=== PATIENT | female | born 1955 | race Caucasian/White ===

== ENCOUNTER 2016-06-28 10:00 | Emergency (ER) | payer MEDICARE, OTHER ==
[2016-06-28 10:23] VITALS: BP 143/79
[2016-06-28] MEDS ORDERED: CYCLOBENZAPRINE HCL 10 MG TABLET PO ONE (10:39)
[2016-06-28] MEDS ORDERED: KETOROLAC TROMETHAMINE 60 MG/2 ML VIAL IM ONE ×2 (10:39→11:07)
--- OUTSIDE RECORDS SUMMARY | 2016-06-28 10:44 | XMS REPORT | Continuity of Care Document ---
:1955 Author Organization [facility] ([facility]) Address [address] [place] [address] Phone [phone] Care Team Providers Name Role Phone MariamdaltonalishaMindy Primary Care Provider [phone] Source Comments This disclosure is being made pursuant to the Care Everywhere program, applicable federal and state laws, and may not contain all informaitonavailable regarding this patient.[facility] ([facility]) Active Allergies and Adverse Reactions No Known Allergies Current Medications Prescription Sig. Disp. Refills Start Date End Date Status ALPRAZolam 0.5 mg 2 03/04/2015 Active tablet BROVANA 15 mcg/2 mL 3 02/28/2015 Active nebu inhalation solution budesonide 0.5 mg/2 mL 3 02/28/2015 Active nebulizer suspension clopidogrel 75 mg 5 03/11/2015 Active tablet famotidine 20 mg tablet 4 03/11/2015 Active fluticasone 50 3 01/03/2015 Active mcg/Actuation nasal spray furosemide 80 mg tablet Take 80 mg by mouth 2 0 03/11/2015 Active times daily glipiZIDE 10 mg tablet Take 10 mg by mouth 2 5 03/11/2015 Active times daily with meals lisinopril 10 mg tablet 5 03/11/2015 Active metFORMIN 1,000 mg Take 1,000 mg by 5 03/11/2015 Active tablet mouth 2 times daily with meals nystatin 100,000 unit/g 1 02/15/2015 Active powder simvastatin 20 mg 5 03/11/2015 Active tablet SPIRIVA WITH HANDIHALER 11 02/21/2015 Active 18 mcg inhalation capsule predniSONE 1 mg tablet 01/19/2015 Active albuterol 90 Use 2 Puffs by Active mcg/Actuation inhaler inhalation every 6 hours as needed Active Problems Problem Noted Date Coronary artery disease Overview: Cath 04/2006: Normal LV function. Right dominant circulation. LMCA normal. LAD normal. LCX normal. RCA 90% proximal stenosis.Stent deployment 3.5x16mm LIBERTE. 0% residual stenosis. ECHO:12/19/2012. Normal LV function. No pulmonary HTN. No significant valvular heart disease Stress Test MPI 05/2006: No inducible ischemia MPI 02/03/2013: No inducible ischemia Diabetes mellitus Tobacco abuse Hyperlipidemia Most Recent Encounters Date Type Specialty Providers Description 05/03/2016 Hospital Encounter Radiation Oncology Carlos Andres, Chief Comp: Patient MD Reported Reason For Visit Social History Tobacco Use Types Packs/Day Years Used Date Former Smoker Alcohol Use Drinks/Week oz/Week Comments No Last Filed Vital Signs Vital Sign Reading Time Taken Blood Pressure 128/70 03/22/2015 9:14 AM ZINC FURNACE CHARGER Pulse 82 03/22/2015 9:14 AM ZINC FURNACE CHARGER Temperature - - Respiratory Rate - - Height 1.473 m (4' 9.99") 03/22/2015 9:14 AM ZINC FURNACE CHARGER Weight 115.214 kg (254 lb) 03/22/2015 9:14 AM ZINC FURNACE CHARGER Body Mass Index 53.1 03/22/2015 9:14 AM ZINC FURNACE CHARGER Oxygen Saturation - - Plan of Care Health Maintenance Due Date Last Done Comments HCV Screening 1955 Hepatitis B Vaccine (1 of 3 - Primary Series) 1955 Tdap Vaccine 07/24/1966 DIABETIC: Cholesterol 07/24/1973 Diabetic: Hdl 07/24/1973 DIABETIC: Hemoglobin A1C 07/24/1973 Diabetic: Ldl 07/24/1973 DIABETIC: Microalbumin 07/24/1973 DIABETIC: Triglycerides 07/24/1973 MMR Vaccine 07/24/1973 Td Vaccine 07/24/1973 Pneumococcal Vaccine (1 of 3 - PCV13) 07/24/1974 Cervical Cancer Screening 07/24/1985 Mammogram 1995 Colonoscopy 07/24/2005 DIABETIC: Foot Exam 03/20/2015 DIABETIC: Retinal Eye Exam 03/20/2015 Zoster Vaccine 2015 Influenza Vaccine: Seasonal (#1) 11/07/2015 Results from Last 3 Months Not on file
--- NOTE | 2016-06-28 10:53 | ERNOTE ---
Back Pain ER HPI Date of Service: 06/28/16 Time Seen by Provider: 06/28/16 10:34 Source: patient Exam Limitations: no limitations Immunizations: IMMUNIZATION HX Immunizations Up to Date Yes History of Influenza Vaccine Yes Hx Pneumococcal Vaccination Yes Allergies/Adverse Reactions: Allergies sodium salicylate Allergy (Unknown, Verified 06/28/16 10:23) Home Medications: HOME MEDICATIONS Aspirin [Hoa Chewable Aspirin] 81 mg PO DAILY 03/06/14 [Last Taken 05/30/15 09 :30] Clopidogrel Bisulfate [Plavix] 75 mg PO DAILY 03/06/14 [Last Taken 05/30/15 09: 30] Famotidine [Pepcid AC] 1 tab PO BID 03/06/14 [Last Taken 05/30/15 09:30] Furosemide [Lasix] 80 mg PO BID 03/06/14 [Last Taken 05/30/15 09:30] Lisinopril [Zestril] 10 mg PO DAILY 03/06/14 [Last Taken 05/30/15 09:30] Multivitamin [Multi-Vitamin Daily] 1 each PO DAILY 03/06/14 [Last Taken 21:00] Simvastatin [Zocor] 10 mg PO HS 03/06/14 [Last Taken 05/29/15] metFORMIN HCL [Glucophage] 1,250 mg PO BID 03/06/14 [Last Taken 05/30/15 09:30] ALPRAZolam [Xanax] 1 tab PO TID PRN 06/30/14 [Last Taken Unknown] Acetaminophen [Tylenol] 2 tab PO QID PRN 06/30/14 [Last Taken Unknown] Glipizide 10 mg PO BID 06/30/14 [Last Taken 05/30/15 09:30] Hydrophilic Ointment 1 appl TP DAILY 06/30/14 [Last Taken Unknown] Ipratropium/Albuterol Sulfate [Combivent Respimat Inhal [place]] 1 puff IH QID [Last Taken Unknown] Sertraline HCl [Zoloft] 50 mg PO HS 05/30/15 [Last Taken 05/29/15 21:00] ALPRAZolam [Xanax] 0.25 mg PO HS 10/14/15 [Last Taken Unknown] Albuterol Sulfate [Proair Hfa] 2 puff IH QID PRN 10/14/15 [Last Taken Unknown] Arformoterol Tartrate [Brovana] 15 mcg IH BID 10/14/15 [Last Taken Unknown] Budesonide [Pulmicort Respules] 2 ml IH BID 10/14/15 [Last Taken Unknown] Diltiazem HCl [Cardizem] 60 mg PO BID 10/14/15 [Last Taken Unknown] Fluticasone Propionate [Flovent Diskus] 50 mcg IH BID 10/14/15 [Last Taken Unknown] Guaifenesin [Mucinex] 1,200 mg PO BID 10/14/15 [Last Taken Unknown] Mupirocin [Centany At] 1 each TP TID PRN 10/14/15 [Last Taken Unknown] Nystatin 1 each MC BID PRN 10/14/15 [Last Taken Unknown] Tiotropium [place] [Spiriva] 18 mcg IH DAILY 10/14/15 [Last Taken Unknown] Azithromycin [Zithromax] 500 mg PO DAILY #2 tab 10/16/15 [Last Taken Unknown] predniSONE [Prednisone] 40 mg PO DAILY #4 tablet 10/16/15 [Last Taken Unknown] Cyclobenzaprine HCl [Flexeril] 10 mg PO TID PRN #30 tab 06/28/16 [Last Taken Unknown] Naproxen [Naprosyn] 500 mg PO BID PRN #60 tab 06/28/16 [Last Taken Unknown] Narrative: Pt. comes in with c/o low back pain for two weeks that she believes started with her straining her back picking up a broken pickle jar two weeks ago. Pt. denies any numbness or tingling, SOB, CP, NVD, radiation of pain, or incontinence of bowel or bladder. Review of Systems - Review of Systems Constitutional: Present: no symptoms reported. Absent: recent illness, fever, chills, weakness, fatigue, malaise EYE: Present: no symptoms reported ENT: Present: no symptoms reported Respiratory: Present: no symptoms reported. Absent: shortness of breath, cough , wheezing Cardiology: Present: no symptoms reported. Absent: chest pain, palpitations, edema Gastrointestinal/Abdominal: Present: no symptoms reported. Absent: nausea, vomiting, diarrhea Genitourinary: Present: no symptoms reported. Absent: frequency, pain, dysuria , hematuria, decreased urinary output Musculoskeletal: Present: back pain - L flank and L3-5 Skin: Present: no symptoms reported Neurological: Present: no symptoms reported. Absent: headache, dizziness/light- headedness, weakness, numbness, tingling All Other Systems: All systems neg except as marked - Patient's Past Medical History Patient History - Medical: Anxiety, Diabetes Type 2, Depression, GERD, Headache , Osteoarthritis Patient History - Cardiac/Respiratory: COPD, Hypertension, Hyperlipidemia, CPAP/ BiPAP Home Use, Sleep Apnea Patient History - Cancer: No Hx of Cancer Patient History - Surgical Procedures: Cardiac stent, Hysterectomy, T & A Patient History - Other: None LMP (females 10-50): Menopausal - Family History Mother Family History - Medical: Diabetes Type 2 Family History - Cardiac/Respiratory: History Unknown Father Family History - Cardiac/Respiratory: Hypertension Sister Family History - Medical: Diabetes Type 2 - Social History Living Situations: home Abuse History: No History of abuse Psych History: No pertinent hx Alcohol Use: none Drug Use: none - Immunizations Immunizations Up to Date: Yes Hx Pneumococcal Vaccination: Yes History of Influenza Vaccine: Yes Physical Exam - Physical Exam General Appearance: Present: wd/wn, alert, no apparent distress Eye Exam: Normal inspection: bilateral, PERRL: bilateral, EOMI: bilateral Ears, Nose, Throat: Present: normal ENT inspection, normal pharynx Neck: Present: normal inspection, nontender. Absent: lymphadenopathy (R), lymphadenopathy (L) Respiratory: Present: no respiratory distress, normal breath sounds, no accessory muscle use, chest nontender, lungs clear Cardiovascular/Chest: Present: regular rate, rhythm, no murmur, normal peripheral pulses Gastrointestinal/Abdominal: Present: normal bowel sounds, nontender, nondistended, soft, no organomegaly Back Exam: Present: normal range of motion, CVA tenderness (L), vertebral tenderness, decreased range of motion, muscle spasm - L paraspinous L4-L5 only Extremity Exam: Present: normal inspection, non-tender, normal range of motion, no edema Neurological Exam: Present: alert, oriented, normal mood/affect, no motor/ sensory deficits Skin Exam: Present: normal color, warm/dry. Absent: pallor, skin rash ED Progress - Results and Orders Patient's Lab Results:: I have reviewed the patient's lab results. - Vital Signs Patient's Vital Signs:: I have reviewed the patient's vital signs. Vital Signs: Vital Signs 06/28/16 10:19 Temperature 37.0 C Pulse Rate 98 Respiratory 16 Rate Blood Pressure 143/79 O2 Sat by Pulse 99 Oximetry - X-Ray X-Ray #1 X-Ray: lumbosacral Interpretation: Reviewed by me X-ray Comments: moderate degenerative spurring - Progress/Reassessment Chief Complaint: Back Pain Departure Clinical Impression: Muscle strain Degenerative disc disease Qualifiers: Spinal region: lumbar Qualified Code(s): M51.36 - Other intervertebral disc degeneration, lumbar region - Departure Disposition: Home self-care Condition: Good Instructions: Low Back Strain With Rehab-SportsMed, Degenerative Disk Disease Additional Instructions: please follow up with primary provider in 2-3 days. Referrals: Mindy Quezada MD [Primary Care Provider] - Prescriptions: Cyclobenzaprine HCl [Flexeril] 10 mg PO TID PRN #30 tab PRN Reason: MUSCLE SPASMS Naproxen [Naprosyn] 500 mg PO BID PRN #60 tab PRN Reason: Pain
[2016-06-28] MEDS ORDERED: CYCLOBENZAPRINE HCL 10 MG TABLET ONE (11:07)
[2016-06-28 11:54] LABS: Urine Bilirubin Negative (NEGATIVE); Urine Blood Negative /ul (NEGATIVE); Urine Ketone Negative (NEGATIVE); Urine Nitrite Negative (NEGATIVE); Urine Protein Negative (NEGATIVE); Urine Urobilinogen Normal (NORMAL)
[2016-06-28 12:08] LABS: Urine Appearance Slightly Cloudy; Urine Bacteria None Seen; Urine Color Yellow; Urine RBC None Seen /hpf (0-5); Urine WBC 0-5 /hpf (0-5)
== END 2016-06-28 12:27 | disposition home or self-care (01) ==
LOC: ER 10:00
DX: M51.36 Other intervertebral disc degeneration, lumbar region (principal); S39.012A Strain of muscle, fascia and tendon of lower back, initial encounter; X50.1XXA Overexertion from prolonged static or awkward postures, initial encounter; Z95.5 Presence of coronary angioplasty implant and graft

== ENCOUNTER 2016-07-17 10:50 | Observation (INO) | payer MEDICARE, OTHER ==
--- OUTSIDE RECORDS SUMMARY | 2016-07-17 10:55 | XMS REPORT | Continuity of Care Document ---
:1955 Author Organization [facility] ([facility]) Address [address] [place] [address] Phone [phone] Care Team Providers Name Role Phone MariamdaltonalishaMindy Primary Care Provider [phone] Source Comments This disclosure is being made pursuant to the Care Everywhere program, applicable federal and state laws, and may not contain all informaitonavailable regarding this patient.[facility] ([facility]) Active Allergies and Adverse Reactions No Known [...] Taken Blood Pressure 128/70 03/22/2015 9:14 AM EARLY CHILDHOOD DIRECTOR Pulse 82 03/22/2015 9:14 AM EARLY CHILDHOOD DIRECTOR Temperature - - Respiratory Rate - - Height 1.473 m (4' 9.99") 03/22/2015 9:14 AM EARLY CHILDHOOD DIRECTOR Weight 115.214 kg (254 lb) 03/22/2015 9:14 AM EARLY CHILDHOOD DIRECTOR Body Mass Index 53.1 03/22/2015 9:14 AM EARLY CHILDHOOD DIRECTOR Oxygen Saturation - - Plan of Care [...]
[2016-07-17] MEDS ORDERED: ONDANSETRON HCL/PF 2 MG/ML VIAL IV PRN (11:21)
[2016-07-17 11:42] LABS: Hematocrit 32.2 % (37.0-47.0); Hemoglobin 9.7 gm/dL (12.5-16.0); Mean Cell Volume 81.1 fl (78-100); Mean Corpuscular Hemoglobin 24.4 pg (27-31); Mean Corpuscular Hgb Conc 30.1 g/dl (32-36); Mean Platelet Volume 10.6 fl (6.0-9.5); Platelet Count 512 K/mm3 (150-450); Red Blood Count 3.97 M/mm3 (4.2-5.4); Red Cell Distribution Width 16.7 % (11.5-14.0); White Blood Count 18.8 K/mm3 (4.0-10.5)
[2016-07-17 11:46] LABS: Total Cells Counted 100
[2016-07-17] MEDS ORDERED: NORMAL SALINE 1,000 ML IV PRN (11:47)
[2016-07-17 11:54] LABS: Troponin I Less than 0.017 ng/ml (0.00-0.10)
[2016-07-17 11:56] LABS: ALT 156 U/L (19-67); AST 142 U/L (0-48); Albumin * 2.3 gm/dl (3.4-5.0); Alkaline Phosphatase * 380 U/L (50-170); Amylase * 22 U/L (25-115); Anion Gap 12.5 mmol/L (6.8-13.8); BNP * 252 pg/mL (5-205); BUN/Creatinine Ratio 17.7 (9.0-21.6); Bilirubin, Total 0.9 mg/dL (0.0-1.1); Blood Urea Nitrogen 14 mg/dL (3-23); Ca. Corrected For Albumin 10.5 mg/dL (8.4-10.2); Calcium * 9.5 mg/dL (7.9-10.9); Carbon Dioxide 37.5 mmol/L (24-32.6); Chloride 94 mmol/L (97-106); Glucose * 53 mg/dL (70-110); Lipase 90 U/L (73-393); Sodium 141 mmol/L (132-142); Total Protein 7.4 gm/dL (6.2-8.2)
--- NOTE | 2016-07-17 11:57 | HP ---
Chief Complaint - Chief Complaint Date of Service: 07/17/16 Time of Service: 11:55 Chief Complaint: nausea and diarrhea for the last 4 days. History of Present Illness: Patient is a 60-year-old WF with a H/O HTN, HLD, T2DM, lymphedema/venous stasis of lower extremities, COPD on O2, CAD who came into the office because of persistent nausea, occasional diarrhea and difficulty in eating. She denies any abdominal pain, vomiting, fevers/chills. The patient has been taking her diabetic medication including metformin however has not been checking her blood sugars. She was admitted for further care/treatment. Abnormal lab values were: WBC 18.8, H/H9.7/32.7, K+ 3.2, AST 142, ALT 156, ALK PO4 380 and CRP 37.2. EKG showed sinus tachycardia of 120/m. Patient looked chronically ill but not septic. 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 Patient History - Cancer: No Hx of Cancer Additional Info: PAST SURGICAL HISTORY: Tonsillectomy; abdominal hysterectomy; hernia repair; . Patient History - Other: None - Family History Mother Family History - Medical: Diabetes Type 2 Family History - Cardiac/Respiratory: History Unknown Father Family History - Cardiac/Respiratory: Hypertension Sister Family History - Medical: Diabetes Type 2 - Social History Living Situations: home Abuse History: No History of abuse Psych History: No pertinent hx Smoking Status: Former smoker - 3/4 PPD for many years. Alcohol Use: none Drug Use: none - Immunizations Immunizations Up to Date: Yes Hx Pneumococcal Vaccination: Yes History of Influenza Vaccine: Yes Review Of Systems (GEN) - Review of Systems Generalized/Overall Review: Present: Weakness, Fatigue. Absent: Chills, Fever, Weight loss Respiratory: Present: Shortness of Breath Cardiac: Present: Edema. Absent: Chest Pain Abdominal: Present: Nausea, Diarrhea. Absent: Abdominal Pain Musculoskeletal: Present: Back Pain Neurological: Present: Anxiety, Depressed Immunizations: IMMUNIZATION HX Immunizations Up to Date Yes History of Influenza Vaccine Yes Hx Pneumococcal Vaccination Yes Allergies/Adverse Reactions: Allergies Allergy/AdvReac Type Severity Reaction Status Date / Time sodium salicylate Allergy Unknown Verified 07/17/16 11:41 Home Medications: HOME MEDICATIONS Aspirin [Hoa Chewable Aspirin] 81 mg PO DAILY 03/06/14 [Last Taken 05/30/15 09 :30] Clopidogrel Bisulfate [Plavix] 75 mg PO DAILY 03/06/14 [Last Taken 05/30/15 09: 30] Famotidine [Pepcid AC] 1 tab PO BID 03/06/14 [Last Taken 05/30/15 09:30] Furosemide [Lasix] 80 mg PO BID 03/06/14 [Last Taken 05/30/15 09:30] Lisinopril [Zestril] 10 mg PO DAILY 03/06/14 [Last Taken 05/30/15 09:30] Simvastatin [Zocor] 10 mg PO HS 03/06/14 [Last Taken 05/29/15] metFORMIN HCL [Glucophage] 1,250 mg PO BID 03/06/14 [Last Taken 05/30/15 09:30] Acetaminophen [Tylenol] 2 tab PO QID PRN 06/30/14 [Last Taken Unknown] glipiZIDE [Glipizide] 10 mg PO BID 06/30/14 [Last Taken 05/30/15 09:30] Sertraline HCl [Zoloft] 50 mg PO DAILY 05/30/15 [Last Taken 05/29/15 21:00] ALPRAZolam [Xanax] 0.25 mg PO HS 10/14/15 [Last Taken Unknown] Arformoterol Tartrate [Brovana] 15 mcg IH BID 10/14/15 [Last Taken Unknown] Budesonide [Pulmicort Respules] 2 ml IH BID 10/14/15 [Last Taken Unknown] Diltiazem HCl [Cardizem] 60 mg PO BID 10/14/15 [Last Taken Unknown] Fluticasone Propionate [Flovent Diskus] 2 spray IH BID 10/14/15 [Last Taken Unknown] Tiotropium [place] [Spiriva] 18 mcg IH DAILY 10/14/15 [Last Taken Unknown] guaiFENesin [Mucinex] 1,200 mg PO BID 10/14/15 [Last Taken Unknown] Albuterol Sulfate [Ventolin Hfa] 90 - 180 mcg INH Q4H PRN 07/17/16 [Last Taken Unknown] predniSONE [Prednisone] 2 mg PO DAILY 07/17/16 [Last Taken Unknown] Exam - Exam Vital Signs: Vital Signs - Last Taken Temp 37.0 C 06/28/16 12:27 Pulse Resp BP 143/79 06/28/16 12:27 Pulse Ox Constitutional: Present: Middle aged, Morbidly obese, Looks Older than stated age - in NAD on O2, uses walker. ENT Exam: Present: hearing grossly normal, moist mucous membranes Eye Exam: bilateral eye: PERRL, EOMI Neck: Present: normal inspection, trachea midline Respiratory: Present: decreased breath sounds - at lung bases.. Absent: no accessory muscle use Cardiovascular/Chest: Present: regular rate, rhythm Peripheral Pulses: carotid (R): 2+, carotid (L): 2+ Abdomen: Present: Normal bowel sounds, nondistended - morbidly obese with pannus ; /Rectal: Present: Exam deferred Extremity: Present: other - lymphedema present, vascular stasis Skin Exam: Present: warm/dry, pallor Neurologic: Present: alert, oriented x 3 - Normal mood and affect Appearance: Present: appropriate appearance, appropriate insight Eye contact: Present: cooperative, good eye contact, normal speech Diagnostic Studies: Laboratory Tests 07/17/16 11:27 WBC 18.8 H Hgb 9.7 L Hct 32.2 L Plt Count 512 H 07/17/16 11:27 Plasma Sodium 140 Potassium 3.0 L Chloride 94 L Carbon Dioxide 37.5 H BUN 14 Creatinine 0.79 Est GFR (Non-Af Amer) 79 Random Glucose 53 L Calcium Adj for Albumin 10.5 H AST 142 H ALT 156 H Alkaline Phosphatase 380 H Total Protein 7.4 Albumin 2.3 L Amylase 22 L Lipase 90 07/17/16 07/17/16 11:27 14:57 Lactic Acid, Venous 3.2 H 4.6 H* Iron 16 L TIBC 222 L Transferrin % Sat 7 L Troponin I <0.017 C-Reactive Prot, Quant 37.2 B-Natriuretic Peptide 252 H Assessment/Plan - Narrative Narrative: 1. persistent nausea with abnormal LFT's: Patient will undergo a CT of the abdomen/pelvis w/ contrast for possible abscess /diverticulitis given elevated WBC 18.8 and CRP 37.2. The patient does not appear septic and therefore was not given antibiotics. She appears chronically ill. Treatment will be initiated pending the results of CT scan. 2. T2 DM: Low blood sugars throughout the day which have improved by holding medications and increasing oral intake. Continue to monitor blood sugars and increase diet as tolerated [currently on clear liquids]. 3. COPD on O2: Patient to use 1 L at rest and 3 L with exertion. Also has a history of sleep apnea and uses CPAP/BiPAP. 4. Sinus tachycardia: BP is normal; has been on diltiazem 60 mg PO BID. will start Lanoxin 0.25 mg IV Q6H and start diltiazem ER 120 mg PO HS. 5. 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
[2016-07-17 11:59] LABS: Band 2 % (0-2.0); Dohle Bodies Trace; Hypochromia 1+; Lymphocyte 12 % (20-51); Microcytosis 1+; Monocyte 5 % (0-9); Neutrophil 81 % (42-75); Neutrophil # 15.2 K/mm3 (1.3-6.0); Platelet Estimate Increased (NORMAL); Polychromasia Trace
[2016-07-17 12:03] LABS: Iron 16 mcg/dL (35-120); Transferrin Sat. (% Sat.) 7 % (15-55)
[2016-07-17] MEDS: INSULIN LISPRO 100 UNITS/ML VIAL SC SCH ×3 (12:30→20:49)
[2016-07-17] MEDS: POTASSIUM CHLORIDE 20 MEQ in NORMAL SALINE 1,000 ML IV SCH ×2 (13:52→14:58)
[2016-07-17] MEDS ORDERED: DIATRIZOATE MEGLU/DIATRIZO SOD 30 ML BTL PO ONE (15:49)
[2016-07-17] MEDS ORDERED: POTASSIUM CHLORIDE 20 MEQ TABLET.SA PO ONE (16:02)
[2016-07-17] MEDS ORDERED: FLUCONAZOLE 150 MG TABLET PO SCH (16:15)
[2016-07-17] MEDS: MICONAZOLE NITRATE 85 APPL BTL TP SCH ×2 (16:16→20:48)
[2016-07-17] MEDS: NORMAL SALINE 1,000 ML IV PRN (16:20)
[2016-07-17] MEDS ORDERED: ONDANSETRON HCL/PF 2 MG/ML VIAL IV SCH (17:00)
[2016-07-17] MEDS: BUDESONIDE 0.5 MG/2 ML VIAL.NEB IH SCH (18:06)
[2016-07-17] MEDS: FORMOTEROL FUMARATE 20 MCG/2 ML VIAL IH SCH (18:07)
[2016-07-17] MEDS ORDERED: DILTIAZEM HCL 120 MG CAP.SR.24H PO SCH (19:00)
[2016-07-17] MEDS: DIGOXIN 0.25 MG/ML AMPUL IV SCH (20:45)
[2016-07-17] MEDS: SACCHAROMYCES BOULARDII 250 MG CAPSULE PO SCH (20:48)
[2016-07-17] MEDS ORDERED: ALPRAZolam 0.25 MG TABLET PO SCH (21:00)
[2016-07-17] MEDS ORDERED: FAMOTIDINE 20 MG TABLET PO SCH (21:00)
[2016-07-18] MEDS: DIGOXIN 0.25 MG/ML AMPUL IV SCH ×2 (01:44→05:24)
[2016-07-18 05:37] LABS: Hematocrit 30.5 % (37.0-47.0); Hemoglobin 8.7 gm/dL (12.5-16.0); Mean Cell Volume 84.5 fl (78-100); Mean Corpuscular Hemoglobin 24.1 pg (27-31); Mean Corpuscular Hgb Conc 28.5 g/dl (32-36); Mean Platelet Volume 10.9 fl (6.0-9.5); Neutrophil # 9.2 K/mm3 (1.3-6.0); Platelet Count 435 K/mm3 (150-450); Red Blood Count 3.61 M/mm3 (4.2-5.4); Red Cell Distribution Width 16.5 % (11.5-14.0); White Blood Count 11.5 K/mm3 (4.0-10.5)
[2016-07-18] MEDS: NORMAL SALINE 1,000 ML IV PRN (05:37)
[2016-07-18] MEDS: ALBUTEROL SULFATE 2.5 MG/3 ML VIAL.NEB IH PRN ×2 (05:39→13:52)
[2016-07-18] MEDS: FORMOTEROL FUMARATE 20 MCG/2 ML VIAL IH SCH ×2 (05:40→18:00)
[2016-07-18] MEDS: BUDESONIDE 0.5 MG/2 ML VIAL.NEB IH SCH ×2 (05:40→18:00)
[2016-07-18 06:04] LABS: Anion Gap 8.5 mmol/L (6.8-13.8); BUN/Creatinine Ratio 13.8 (9.0-21.6); Bilirubin, Total 0.8 mg/dL (0.0-1.1); Calcium * 8.7 mg/dL (7.9-10.9); Carbon Dioxide 37.3 mmol/L (24-32.6); Potassium 3.8 mmol/L (3.4-4.6); Total Protein 6.7 gm/dL (6.2-8.2)
[2016-07-18] MEDS: INSULIN LISPRO 100 UNITS/ML VIAL SC SCH ×3 (06:49→16:27)
[2016-07-18] MEDS: FAMOTIDINE 20 MG TABLET PO SCH ×2 (06:50→16:27)
[2016-07-18] MEDS: ONDANSETRON 4 MG TAB.RAPDIS SL SCH ×3 (06:51→16:26)
[2016-07-18] MEDS: ACETAMINOPHEN 500 MG TABLET PO PRN ×2 (06:58→16:30)
[2016-07-18] MEDS ORDERED: TIOTROPIUM BROMIDE 5 CAP INHALER IH SCH (09:00)
[2016-07-18] MEDS: SACCHAROMYCES BOULARDII 250 MG CAPSULE PO SCH (09:19)
[2016-07-18] MEDS: MICONAZOLE NITRATE 85 APPL BTL TP SCH (09:19)
--- NOTE | 2016-07-18 12:33 | DS ---
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 by BX. Complicated by pneumothorax and patient underwent chest tube placement. 08/09/2015- MRI of head negative 08/10/2015- increased FDG activity-by PET scan. 08/19/2015- mediastinoscopy suggested - felt to be high risk. 02/02/2016- CT chest stable 05/03/2016-CT chest stable. Problem: Chronic (6) COPD with hypoxia Diagnosis(s): 1 L at rest and 3 L with activity. Problem: Chronic (7) Morbid obesity Problem: Chronic Qualifiers: Obesity type: unspecified obesity type Qualified Code(s): E66.01 - Morbid ( severe) obesity due to excess calories Description of Stay: DATE OF ADMISSION: 07/17/2016. DATE OF DISCHARGE: 07/18/2016. DIAGNOSTICS: CT abdomen/pelvis W/ contrast 07/17/2016. 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 She had hypoglycemic symptoms as she was continuing to take her diabetic medications. Pertinent lab values included elevated LFTs [ AST 142, ALT 156, ALK PO4 380], WBC 18.8, H/H 9.7/32.7, K+ 3.2, and CRP 37.2. EKG showed sinus tachycardia of 120/m and HR did go upto 140s' with activity. Lactic acid was elevated at 3.2 and 4.6 mmol/L most likely secondary to metformin and respiratory Rx. C. difficile was negative. Tsat 7% Initial chest x-ray on 07/17/16 showed hyperinflation possible COPD-with lower lung peribronchial thickening- correlate for bronchitis w/o consolidation. Abdominal x-ray on 07/17/16: Stool retention with nonobstructive bowel gas pattern. Patient did undergo a CT of the abdomen/pelvis W/ contrast on 2016 which showed hepatomegaly with innumerable variable sized liver masses compatible with extensive liver metastatic disease. Multiple pulmonary nodules worrisome for metastatic disease or primary lung malignancy. Left adrenal mass present. Ventral hernias and uncomplicated diverticulosis present. Patient's nausea and vomiting improved with ondansetron 4 mg IV AC and later SL. She was given IV fluids with improvement in her symptoms and labs. Sinus tachycardia was treated with digoxin and she was started on diltiazem ER 180 mg at bedtime. Patient was informed of her condition on 07/18/16. She has a follow-up appointment with oncologist and PCP. She was discharged in a stable condition. Over 70 minutes was spent with the patient discussing CT findings; plan of care , discharging patient, reconciliation of medications, preparing and dictating discharge summary. Procedures Performed: none Results and Findings: Laboratory Tests 07/17/16 07/18/16 11:27 05:19 WBC 18.8 H 11.5 H D Hgb 9.7 L 8.7 L Hct 32.2 L 30.5 L Plt Count 512 H 435 07/17/16 07/18/16 11:27 05:19 Plasma Sodium 140 140 Potassium 3.0 L 3.8 D Chloride 94 L 98 Carbon Dioxide 37.5 H 37.3 BUN 14 9 Creatinine 0.79 0.65 Est GFR (Non-Af Amer) 79 99 D Random Glucose 53 L 107 D Calcium Adj for Albumin 10.5 H 10.0 Total Bilirubin 0.9 0.8 AST 142 H 126 H ALT 156 H 145 H Alkaline Phosphatase 380 H 330 H Total Protein 7.4 6.7 Albumin 2.3 L 2.0 L Amylase 22 L Lipase 90 07/17/16 11:27 ESR 117 H Troponin I < 0.017 C-RP 37.2 H B-MENTAL HEALTH SPECIALIST 252 H Iron 16 L TIBC 222 L Tsat% 7 L 07/17/16 18:25 Stl C.difficile Tox A&B Negative EK07/17/2016: NSR 120/m nonspecific ST and T wave changes. CXR 07/17/2016: 11:18. Lungs are hyperinflated. There is diffuse prominence of interstitial lung markings with lower lung peribronchial thickening. Scattered calcific granulomas. Correlate for COPD/bronchitis. No focal consolidation. No pneumothorax/pleural effusion/acute osseous findings. Osseous structures are remarkable for DJD. Decrease osseous mineralization. The mediastinum and cardiac silhouette and pulmonary vasculature are WNL. IMPRESSION: No focal consolidation. Correlate for bronchitis. Abdominal Series: 07/17/2016. Stool retention with nonobstructive bowel gas pattern. There are loops of bowel projection over the bilateral proximal femurs unchanged. This may represent extension of bowel into a pannus. CT ABD/PELVIS W/CONTRAST: 17:52. 1. Hepatomegaly with innumerable variable size liver masses compatible with extensive liver metastatic disease. 2. Multiple bilateral pulmonary nodules worrisome for either metastatic disease or primary lung malignancy. 3. Left adrenal mass worrisome for potential metastatic disease. 4. Fat-containing ventral hernias and fat-containing periumbilical hernia. S/ P hysterectomy. 5. Uncomplicated diverticulosis and atherosclerotic disease. Discharge Disposition: Home self care Disposition: Home self-care Condition: Undetermined Discharge Activity: Activity as tolerated Discharge Diet: Consistent carbs, Low fat/chol, High Fiber Referrals: Mindy Quezada MD [Primary Care Provider] - Problem Oriented Discharge Instructions to Patient/Family: Dehydration, Adult, [id number] Additional Patient Instructions (free text): Oncology appt. with Dr Reinoso at [facility] on SaturdayJune 23 at 8:[address] scan images and report to [facility] and physician. Done. D/C metformin if patient is nauseated ; reduce diabetic medications meds by half or do not take them depending on blood sugars. Check Blood sugars often if sick. Mattieeme x2 through [facility] 10 days apart. [facility] appointment Saturday @ 9:00am, second appointment 07-30-16 @ 1:30pm. Has [facility] [employer] on going, please call and fax at discharge. Oxygen 1 L at rest; 3 L with activity. MEDICATIONS- D/GRETA: Lisinopril 10 mg Ranitidine 150 mg Metformin 1250 mg Furosemide 80 mg. MEDICATIONS-NEW/DOSES CHANGED Diltiazem CD 180 mg PO at bedtime. Metformin 1000 mg PO BID. Furosemide 40 mg PO 0800,1500. Spironolactone 25 mg PO 0800,1500. Vitamin D3 5000 units daily PO with food[ OTC medication; cheaper in a bottle of 100]. Miconazole 2% powder[ Zeasorb, Desenex] OTC powder for rash in groin, abdominal folds and under breast. Famotidine 20 mg PO BID before meals [heartburn]. Ondansetron 4 mg sublingually before meals and as needed[for nausea]. Fluconazole 150 mg PO on Mondays and for 5 weeks[ rash on abdomen]. Prescriptions (Any new or edited meds): Cholecalciferol (Vitamin D3) [Vitamin D3] 5,000 unit PO DAILY #100 tablet Diltiazem HCl [Diltiazem 24Hr Cd] 180 mg PO HS #30 cap.er.24h Famotidine [Pepcid AC] 1 tab PO BIDAC #90 tablet Ferumoxytol [Feraheme] 510 mg IV Q10D #2 vial Fluconazole [Diflucan] 150 mg PO MOTH #10 tablet Furosemide [Lasix] 40 mg PO BID #.1 tablet Miconazole Nitrate [Desenex] 1 appl TP BID #1 btl Ondansetron [Zofran Odt] 4 mg SL AC #100 tab.rapdis Spironolactone [Aldactone] 25 mg PO BID #60 tablet metFORMIN HCL [Glucophage] 1,000 mg PO BID #.1 tablet Complete Home Medications List: Complete Home Medication List: Aspirin [Hoa Chewable Aspirin] 81 mg PO DAILY 03/06/14 Clopidogrel Bisulfate [Plavix] 75 mg PO DAILY 03/06/14 glipiZIDE [Glipizide] 10 mg PO BID 06/30/14 Sertraline HCl [Zoloft] 50 mg PO DAILY 05/30/15 ALPRAZolam [Xanax] 0.25 mg PO HS 10/14/15 Arformoterol Tartrate [Brovana] 15 mcg IH BID 10/14/15 Budesonide [Pulmicort Respules] 2 ml IH BID 10/14/15 Fluticasone Propionate [Flovent Diskus] 2 spray IH BID 10/14/15 Tiotropium [place] [Spiriva] 18 mcg IH DAILY 10/14/15 guaiFENesin [Mucinex] 1,200 mg PO BID 10/14/15 Albuterol Sulfate [Ventolin Hfa] 90 - 180 mcg INH Q4H PRN 07/17/16 predniSONE [Prednisone] 2 mg PO DAILY 07/17/16 Cholecalciferol (Vitamin D3) [Vitamin D3] 5,000 unit PO DAILY #100 tablet Diltiazem HCl [Diltiazem 24Hr Cd] 180 mg PO HS #30 cap.er.24h 07/18/16 Famotidine [Pepcid AC] 1 tab PO BIDAC #90 tablet 07/18/16 Ferumoxytol [Feraheme] 510 mg IV Q10D #2 vial 07/18/16 Fluconazole [Diflucan] 150 mg PO MOTH #10 tablet 07/18/16 Furosemide [Lasix] 40 mg PO BID #.1 tablet 07/18/16 Miconazole Nitrate [Desenex] 1 appl TP BID #1 btl 07/18/16 Ondansetron [Zofran Odt] 4 mg SL AC #100 tab.rapdis 07/18/16 Spironolactone [Aldactone] 25 mg PO BID #60 tablet 07/18/16 metFORMIN HCL [Glucophage] 1,000 mg PO BID #.1 tablet 07/18/16
[2016-07-18 19:20] VITALS: BP 135/73
== END 2016-07-18 19:47 | disposition home health service (06) ==
LOC: MS 10:50 → OBSVTOIN 17:00 → MS 17:00 → INTOOBSV 17:00
PROVIDERS: ADMIT Internal Medicine; ATTEND Internal Medicine
DX: R11.2 Nausea with vomiting, unspecified (principal); E11.649 Type 2 diabetes mellitus with hypoglycemia without coma; Z79.84 Long term (current) use of oral hypoglycemic drugs; R00.0 Tachycardia, unspecified; C7A.8 Other malignant neuroendocrine tumors; J44.9 Chronic obstructive pulmonary disease, unspecified; Z87.891 Personal history of nicotine dependence; C78.7 Secondary malignant neoplasm of liver and intrahepatic bile duct; C78.02 Secondary malignant neoplasm of left lung; C78.01 Secondary malignant neoplasm of right lung; I89.0 Lymphedema, not elsewhere classified; I87.8 Other specified disorders of veins
CPT/HCPCS: 36415; 71020; 74020; 74177; 80053; 82150; 83540; 83550; 83605; 83690; 83880; 84484; 85007; 85025; 85652; 86140; 87040; 87045; 87046; 87493; 93005; 94640; 96365; 96366; 96375; 96376; G0378; G0379

== ENCOUNTER 2016-07-20 19:27 | Emergency (ER) | payer MEDICARE, OTHER ==
[2016-07-20] MEDS ORDERED: fentaNYL CITRATE/PF 50 MCG/ML AMPUL IV ONE (20:37)
[2016-07-20] MEDS ORDERED: PROMETHAZINE HCL 25 MG/ML AMPUL IM ONE (20:37)
[2016-07-20 20:41] LABS: Hematocrit 32.6 % (37.0-47.0); Hemoglobin 9.2 gm/dL (12.5-16.0); Mean Cell Volume 84.7 fl (78-100); Mean Corpuscular Hemoglobin 23.9 pg (27-31); Mean Corpuscular Hgb Conc 28.2 g/dl (32-36); Mean Platelet Volume 10.1 fl (6.0-9.5); Neutrophil # 10.9 K/mm3 (1.3-6.0); Neutrophil % 81.6 % (42-75.0); Platelet Count 484 K/mm3 (150-450); Red Blood Count 3.85 M/mm3 (4.2-5.4); Red Cell Distribution Width 16.5 % (11.5-14.0); White Blood Count 13.3 K/mm3 (4.0-10.5)
--- NOTE | 2016-07-20 20:41 | ERNOTE ---
Abdominal HPI - Narrative Date of Service: 07/20/16 - General Chief Complaint: Abdominal Pain Source: patient, family - Immun/Allergies/Home Medications Immunizatons: IMMUNIZATION HX Immunizations Up to Date Yes History of Influenza Vaccine Yes Hx Pneumococcal Vaccination Yes Allergies/Adverse Reactions: Allergies sodium salicylate Allergy (Unknown, Verified 07/20/16 19:37) Home Medications: HOME MEDICATIONS Aspirin [Hoa Chewable Aspirin] 81 mg PO DAILY 03/06/14 [Last Taken 05/30/15 09 :30] Clopidogrel Bisulfate [Plavix] 75 mg PO DAILY 03/06/14 [Last Taken 05/30/15 09: 30] glipiZIDE [Glipizide] 10 mg PO BID 06/30/14 [Last Taken 05/30/15 09:30] Sertraline HCl [Zoloft] 50 mg PO DAILY 05/30/15 [Last Taken 05/29/15 21:00] ALPRAZolam [Xanax] 0.25 mg PO HS 10/14/15 [Last Taken Unknown] Arformoterol Tartrate [Brovana] 15 mcg IH BID 10/14/15 [Last Taken Unknown] Budesonide [Pulmicort Respules] 2 ml IH BID 10/14/15 [Last Taken Unknown] Fluticasone Propionate [Flovent Diskus] 2 spray IH BID 10/14/15 [Last Taken Unknown] Tiotropium [place] [Spiriva] 18 mcg IH DAILY 10/14/15 [Last Taken Unknown] guaiFENesin [Mucinex] 1,200 mg PO BID 10/14/15 [Last Taken Unknown] Albuterol Sulfate [Ventolin Hfa] 90 - 180 mcg INH Q4H PRN 07/17/16 [Last Taken Unknown] predniSONE [Prednisone] 2 mg PO DAILY 07/17/16 [Last Taken Unknown] Cholecalciferol (Vitamin D3) [Vitamin D3] 5,000 unit PO DAILY #100 tablet [Last Taken Unknown] Diltiazem HCl [Diltiazem 24Hr Cd] 180 mg PO HS #30 cap.er.24h 07/18/16 [Last Taken Unknown] Famotidine [Pepcid AC] 1 tab PO BIDAC #90 tablet 07/18/16 [Last Taken Unknown] Ferumoxytol [Feraheme] 510 mg IV Q10D #2 vial 07/18/16 [Last Taken Unknown] Fluconazole [Diflucan] 150 mg PO MOTH #10 tablet 07/18/16 [Last Taken Unknown] Furosemide [Lasix] 40 mg PO BID #.1 tablet 07/18/16 [Last Taken Unknown] Miconazole Nitrate [Desenex] 1 appl TP BID #1 btl 07/18/16 [Last Taken Unknown] Ondansetron [Zofran Odt] 4 mg SL AC #100 tab.rapdis 07/18/16 [Last Taken Unknown ] Spironolactone [Aldactone] 25 mg PO BID #60 tablet 07/18/16 [Last Taken Unknown] metFORMIN HCL [Glucophage] 1,000 mg PO BID #.1 tablet 07/18/16 [Last Taken Unknown] HYDROcodone/ACETAMINOPHEN [[place] 5-325] 1 each PO Q6H PRN #20 tablet 07/20/16 [ Last Taken Unknown] - History of Present Illness Narrative: Complaints of LUQ pain for several days that has increased, now is sharp. Seen on the 07/17 for similar pain and CT was done at the time which was - Patient's Past Medical History Patient History - Medical: Anxiety, Diabetes Type 2, Depression, GERD Patient History - Cardiac/Respiratory: Atrial Fibrillation, Coronary Heart Disease, CHF, COPD, Hypertension, Hyperlipidemia, Home O2 Use, Sleep Apnea, Other Patient History - Cancer: Lung, Other Patient History - Surgical Procedures: Cardiac stent, , Hysterectomy, Hernia Repair Patient History - Other: None LMP (females 10-50): Menopausal - Family History Mother Family History - Medical: Diabetes Type 2 Family History - Cardiac/Respiratory: History Unknown Father Family History - Cardiac/Respiratory: Hypertension Sister Family History - Medical: Diabetes Type 2 - Social History Living Situations: home Abuse History: No History of abuse Psych History: Psychiatric Hx, Hx of Anxiety, Hx of Depression Alcohol Use: none Drug Use: none - Immunizations Immunizations Up to Date: Yes Hx Pneumococcal Vaccination: Yes History of Influenza Vaccine: Yes ED Progress - Results and Orders Patient's Lab Results:: I have reviewed the patient's lab results. - Vital Signs Patient's Vital Signs:: I have reviewed the patient's vital signs. Vital Signs: Vital Signs 07/20/16 07/20/16 07/20/16 19:32 19:44 20:33 Temperature 36.6 C Pulse Rate 128 H 126 H 123 H Respiratory 20 21 H 24 H Rate Blood Pressure 162/83 162/83 O2 Sat by Pulse 96 96 94 Oximetry - Progress/Reassessment Chief Complaint: Abdominal Pain Progress:: Improved Progress Note-Subjective: 07/20/16 23:17 The pain has greatly decreased and is comfortable. Complaints of a dry mouth. Thus far she has only been taking Motrin for pain control. On 06/2015 she was diagnosed with large cell neuroendocrine Cancer of the left upper lobe of the lung. Next week it will be determined what treatment will be given for the cancer. She was should also discuss pain control.The pain that she has been having in the LUQ may be due to stool or the cancer. 07/20/16 23:30 Departure - Departure Clinical Impression: Metastatic cancer Disposition: Home self-care Condition: Fair Instructions: Abdominal Pain, Adult, [id number] Language: Nigerian Additional Instructions: If the pain becomes worse return to the ED. At home try the Magnesium citrate to determine if the pain is relieved by its use. Also at home drink one liter of water. Prescriptions: HYDROcodone/ACETAMINOPHEN [[place] 5-325] 1 each PO Q6H PRN #20 tablet PRN Reason: Pain
[2016-07-20] MEDS ORDERED: fentaNYL CITRATE/PF 50 MCG/ML AMPUL ONE (20:43)
[2016-07-20] MEDS ORDERED: PROMETHAZINE HCL 25 MG/ML AMPUL ONE (20:44)
[2016-07-20 21:05] LABS: Albumin * 2.1 gm/dl (3.4-5.0); Anion Gap 7.2 mmol/L (6.8-13.8); BUN/Creatinine Ratio 18.5 (9.0-21.6); Bilirubin, Total 0.6 mg/dL (0.0-1.1); Ca. Corrected For Albumin 10.1 mg/dL (8.4-10.2); Calcium * 8.9 mg/dL (7.9-10.9); Carbon Dioxide 40.3 mmol/L (24-32.6); Potassium 3.5 mmol/L (3.4-4.6); Total Protein 6.8 gm/dL (6.2-8.2)
[2016-07-20 21:54] LABS: Urine Bilirubin Negative (NEGATIVE); Urine Blood Negative /ul (NEGATIVE); Urine Ketone Negative (NEGATIVE); Urine Nitrite Negative (NEGATIVE); Urine Protein Negative (NEGATIVE); Urine Specific Gravity <=1.005 SP.GR. (1.005-1.010); Urine Urobilinogen Normal (NORMAL)
--- OUTSIDE RECORDS SUMMARY | 2016-07-20 21:58 | XMS REPORT | Continuity of Care Document ---
:1955 Author Organization [facility] ([facility]) Address [address] [place] [address] Phone [phone] Care Team Providers Name Role Phone MariamdaltonalishaMindy Primary Care Provider [phone] Source Comments This disclosure is being made pursuant to the Care Everywhere program, applicable federal and state laws, and may not contain all informaitonavailable regarding this patient.[facility] ([facility]) Active Allergies and Adverse Reactions No Known [...] Taken Blood Pressure 128/70 03/22/2015 9:14 AM BUSINESS SYSTEM CONSULTANT Pulse 82 03/22/2015 9:14 AM BUSINESS SYSTEM CONSULTANT Temperature - - Respiratory Rate - - Height 1.473 m (4' 9.99") 03/22/2015 9:14 AM BUSINESS SYSTEM CONSULTANT Weight 115.214 kg (254 lb) 03/22/2015 9:14 AM BUSINESS SYSTEM CONSULTANT Body Mass Index 53.1 03/22/2015 9:14 AM BUSINESS SYSTEM CONSULTANT Oxygen Saturation - - Plan of Care [...]
[2016-07-20 22:05] LABS: Urine Appearance Clear; Urine Bacteria None Seen; Urine Color Yellow; Urine RBC None Seen /hpf (0-5); Urine WBC None Seen /hpf (0-5)
[2016-07-20] MEDS ORDERED: NORMAL SALINE 1,000 ML IV PRN (22:56)
[2016-07-20] MEDS ORDERED: MAGNESIUM CITRATE 300 ML BTL ONE (23:16)
[2016-07-20] MEDS ORDERED: MAGNESIUM CITRATE 300 ML BTL PO ONE (23:17)
[2016-07-21 00:04] VITALS: BP 172/82
== END 2016-07-20 23:55 | disposition home or self-care (01) ==
LOC: ER 19:27
DX: C7B.8 Other secondary neuroendocrine tumors (principal); Z95.5 Presence of coronary angioplasty implant and graft; Z99.81 Dependence on supplemental oxygen; Z85.118 Personal history of other malignant neoplasm of bronchus and lung

== ENCOUNTER 2016-07-23 10:11 | Observation (INO) | payer MEDICARE, OTHER ==
[2016-07-23] MEDS ORDERED: ONDANSETRON HCL/PF 2 MG/ML VIAL IV ONE (10:36)
[2016-07-23] MEDS ORDERED: HYDROmorphone HCL 1 MG/ML DISP.SYRIN IV ONE ×2 (10:36→15:29)
[2016-07-23] MEDS ORDERED: NORMAL SALINE 1,000 ML IV ONE (10:36)
[2016-07-23 10:42] LABS: Hematocrit 32.7 % (37.0-47.0); Hemoglobin 9.6 gm/dL (12.5-16.0); Mean Cell Volume 83.4 fl (78-100); Mean Corpuscular Hemoglobin 24.5 pg (27-31); Mean Corpuscular Hgb Conc 29.4 g/dl (32-36); Mean Platelet Volume 10.1 fl (6.0-9.5); Platelet Count 508 K/mm3 (150-450); Red Blood Count 3.92 M/mm3 (4.2-5.4); Red Cell Distribution Width 17.6 % (11.5-14.0); White Blood Count 13.3 K/mm3 (4.0-10.5)
--- OUTSIDE RECORDS SUMMARY | 2016-07-23 10:43 | XMS REPORT | Continuity of Care Document ---
:1955 Author Organization [facility] ([facility]) Address [address] [place] [address] Phone [phone] Care Team Providers Name Role Phone MariamdaltonalishaMindy Primary Care Provider [phone] Source Comments This disclosure is being made pursuant to the Care Everywhere program, applicable federal and state laws, and may not contain all informaitonavailable regarding this patient.[facility] ([facility]) Active Allergies and Adverse Reactions No [...] Taken Blood Pressure 128/70 03/22/2015 9:14 AM HOUSEFELLOW Pulse 82 03/22/2015 9:14 AM HOUSEFELLOW Temperature - - Respiratory Rate - - Height 1.473 m (4' 9.99") 03/22/2015 9:14 AM HOUSEFELLOW Weight 115.214 kg (254 lb) 03/22/2015 9:14 AM HOUSEFELLOW Body Mass Index 53.1 03/22/2015 9:14 AM HOUSEFELLOW Oxygen Saturation - - Plan of Care [...]
[2016-07-23 10:46] LABS: Prothrombin Time (Patient) 11.3 Seconds (9.4-11.4)
--- NOTE | 2016-07-23 10:49 | ERNOTE ---
Medical Problem HPI - Narrative Date of Service: 07/23/16 - General Chief Complaint: General Assessment Time Seen by Provider: 07/23/16 10:24 Source: patient, family Exam Limitations: no limitations - Immun/Allergies/Home Medications Immunizations: IMMUNIZATION HX Immunizations Up to Date Yes History of Influenza Vaccine Yes Hx Pneumococcal Vaccination Yes Allergies/Adverse Reactions: Allergies sodium salicylate Allergy (Unknown, Verified 07/23/16 10:19) Home Medications: HOME MEDICATIONS Aspirin [Hoa Chewable Aspirin] 81 mg PO DAILY 03/06/14 [Last Taken 05/30/15 09 :30] Clopidogrel Bisulfate [Plavix] 75 mg PO DAILY 03/06/14 [Last Taken 05/30/15 09: 30] glipiZIDE [Glipizide] 10 mg PO BID 06/30/14 [Last Taken 05/30/15 09:30] Sertraline HCl [Zoloft] 50 mg PO DAILY 05/30/15 [Last Taken 05/29/15 21:00] ALPRAZolam [Xanax] 0.25 mg PO HS 10/14/15 [Last Taken Unknown] Arformoterol Tartrate [Brovana] 15 mcg IH BID 10/14/15 [Last Taken Unknown] Budesonide [Pulmicort Respules] 2 ml IH BID 10/14/15 [Last Taken Unknown] Fluticasone Propionate [Flovent Diskus] 2 spray IH BID 10/14/15 [Last Taken Unknown] Tiotropium [place] [Spiriva] 18 mcg IH DAILY 10/14/15 [Last Taken Unknown] guaiFENesin [Mucinex] 1,200 mg PO BID 10/14/15 [Last Taken Unknown] Albuterol Sulfate [Ventolin Hfa] 90 - 180 mcg INH Q4H PRN 07/17/16 [Last Taken Unknown] predniSONE [Prednisone] 2 mg PO DAILY 07/17/16 [Last Taken Unknown] Cholecalciferol (Vitamin D3) [Vitamin D3] 5,000 unit PO DAILY #100 tablet [Last Taken Unknown] Diltiazem HCl [Diltiazem 24Hr Cd] 180 mg PO HS #30 cap.er.24h 07/18/16 [Last Taken Unknown] Famotidine [Pepcid AC] 1 tab PO BIDAC #90 tablet 07/18/16 [Last Taken Unknown] Ferumoxytol [Feraheme] 510 mg IV Q10D #2 vial 07/18/16 [Last Taken Unknown] Fluconazole [Diflucan] 150 mg PO MOTH #10 tablet 07/18/16 [Last Taken Unknown] Furosemide [Lasix] 40 mg PO BID #.1 tablet 07/18/16 [Last Taken Unknown] Miconazole Nitrate [Desenex] 1 appl TP BID #1 btl 07/18/16 [Last Taken Unknown] Ondansetron [Zofran Odt] 4 mg SL AC #100 tab.rapdis 07/18/16 [Last Taken Unknown ] Spironolactone [Aldactone] 25 mg PO BID #60 tablet 07/18/16 [Last Taken Unknown] metFORMIN HCL [Glucophage] 1,000 mg PO BID #.1 tablet 07/18/16 [Last Taken Unknown] HYDROcodone/ACETAMINOPHEN [[place] 5-325] 1 each PO Q6H PRN #20 tablet 07/20/16 [ Last Taken Unknown] - History of Present History Narrative: Pt. comes in with c/o L anterior chest pain that radiates to her back and her LUQ. Pt. has a large cell carcinoma in her SURI and mets to her liver, abdomen, and bladder as reported by her daughter. Pt. lives with daughter who is disabled and has an optimae worker who are both trying to take care of peggy but they are unable to assist her to the bathroom and help her with her cares, they feel unsafe sending her home. Pt. states that she isshort of breath with this pain and has not been able to drink much lately due to the pain and states that the hyrocodone is not helping Review of Systems - Review of Systems Constitutional: Present: fatigue, malaise. Absent: recent illness, fever, chills, weakness, other EYE: Present: no symptoms reported ENT: Absent: nose congestion, nasal drainage, sore throat Respiratory: Present: shortness of breath. Absent: cough Cardiology: Present: chest pain. Absent: palpitations, edema Gastrointestinal/Abdominal: Present: abdominal pain. Absent: nausea, vomiting, diarrhea Genitourinary: Present: no symptoms reported Musculoskeletal: Present: back pain - L upper. Absent: neck pain, joint pain Skin: Present: no symptoms reported. Absent: rash, change in color Neurological: Present: dizziness/light-headedness. Absent: headache, numbness, tingling Endocrine: Present: intolerance to heat, intolerance to cold, increased thirst, unexplained weight loss. Absent: increased urine All Other Systems: All systems neg except as marked - Patient's Past Medical History Patient History - Medical: Anxiety, Diabetes Type 2, Depression, GERD Patient History - Cardiac/Respiratory: Atrial Fibrillation, Coronary Heart Disease, CHF, COPD, Hypertension, Hyperlipidemia, Home O2 Use, Sleep Apnea Patient History - Cancer: Lung, Other Patient History - Surgical Procedures: Cardiac stent, , Hysterectomy, Hernia Repair Patient History - Other: None - Family History Mother Family History - Medical: Diabetes Type 2 Family History - Cardiac/Respiratory: History Unknown Father Family History - Cardiac/Respiratory: Hypertension Sister Family History - Medical: Diabetes Type 2 - Social History Living Situations: home Abuse History: No History of abuse Psych History: Psychiatric Hx, Hx of Anxiety, Hx of Depression Alcohol Use: none Drug Use: none - Immunizations Immunizations Up to Date: Yes Hx Pneumococcal Vaccination: Yes History of Influenza Vaccine: Yes Physical Exam - Physical Exam General Appearance: Present: wd/wn, alert, no apparent distress Eye Exam: Normal inspection: bilateral, PERRL: bilateral, EOMI: bilateral Ears, Nose, Throat: Present: normal ENT inspection, normal pharynx Neck: Present: normal inspection, nontender, supple. Absent: lymphadenopathy (R ), lymphadenopathy (L) Respiratory: Present: chest nontender, lungs clear, respiratory distress - tachypneic Cardiovascular/Chest: Present: regular rate, rhythm, no murmur, normal peripheral pulses Gastrointestinal/Abdominal: Present: tenderness - LUQ, abnormal bowel sounds - rare, distended. Absent: guarding, rebound, McBurney sign, Obturator sign, Gage sign, Psoas sign, mass, hernia, hepatomegaly Back Exam: Present: normal inspection, normal range of motion, no CVA tenderness , no vertebral tenderness Extremity Exam: Present: normal inspection, non-tender, normal range of motion, extremity edema - B firm Neurological Exam: Present: alert, oriented, normal mood/affect, inside barrel lathe operator II-XII nml as tested, normal cerebellar test, motor weakness - throughout Skin Exam: Present: warm/dry, diaphoresis, pallor. Absent: skin rash ED Progress - Date and Time Seen: Date and Time: 07/23/16 15:54 Discussed case with case management and per wilfrido sanderson. is to be admitted to [facility] tomorrow after insurance preauth. Discussed with Dr Quezada and he is ok to accept for observation until she is sent to the [facility] tomorrow. - Results and Orders Patient's Lab Results:: I have reviewed the patient's lab results. - Vital Signs Patient's Vital Signs:: I have reviewed the patient's vital signs. Vital Signs: Vital Signs 07/23/16 10:13 Temperature 36.6 C Pulse Rate 117 H Respiratory 18 Rate Blood Pressure 133/70 O2 Sat by Pulse 92 Oximetry - EKG EKG: other - Sinus tach, no acute EKG read: Reviewed by me EKG Comments: Interpreted by Dr Gonzalez - X-Ray X-Ray #1 X-Ray: abdomen Interpretation: Reviewed by me X-ray Comments: mildly dilated loops of bowel on L side but bowel gas and stool in the colonic segments.with hepatomegaly. - Progress/Reassessment Chief Complaint: General Assessment Departure - Departure Clinical Impression: Large cell neuroendocrine carcinoma, pulmonary and liver lesions, multiple, Weakness, Physical deconditioning Abdominal pain Qualifiers: Abdominal location: left upper quadrant Qualified Code(s): R10.12 - Left upper quadrant pain Disposition: [facility] Condition: Fair
[2016-07-23 10:50] LABS: ALT 140 U/L (19-67); AST 102 U/L (0-48); Alkaline Phosphatase * 349 U/L (50-170); Anion Gap 10.4 mmol/L (6.8-13.8); Bilirubin, Total 0.8 mg/dL (0.0-1.1); Blood Urea Nitrogen 13 mg/dL (3-23); Ca. Corrected For Albumin 10.4 mg/dL (8.4-10.2); Calcium * 9.1 mg/dL (7.9-10.9); Carbon Dioxide 38.1 mmol/L (24-32.6); Chloride 96 mmol/L (97-106); Glucose * 172 mg/dL (70-110); Potassium 3.5 mmol/L (3.4-4.6); Sodium 141 mmol/L (132-142); Total Protein 6.7 gm/dL (6.2-8.2); Troponin I Less than 0.017 ng/ml (0.00-0.10)
[2016-07-23 10:51] LABS: Total Cells Counted 100
[2016-07-23 10:52] LABS: INR 1.09 INR (0.90-1.10); Partial Thrombolplastin Time 27.5 Seconds (24-32)
[2016-07-23] MEDS ORDERED: ONDANSETRON HCL/PF 2 MG/ML VIAL ONE (11:08)
[2016-07-23] MEDS ORDERED: HYDROmorphone HCL 1 MG/ML DISP.SYRIN ONE ×2 (11:08→15:31)
[2016-07-23 11:18] LABS: Band 4 % (0-2.0); Dohle Bodies Trace; Eosinophil 1 % (0-3); Lymphocyte 8 % (20-51); Monocyte 2 % (0-9); Neutrophil 85 % (42-75); Neutrophil # 11.3 K/mm3 (1.3-6.0); Platelet Estimate Increased (NORMAL)
[2016-07-23 11:20] LABS: Hemoglobin A1C 6.6 % (4.00-6.0)
[2016-07-23] MEDS ORDERED: METOCLOPRAMIDE HCL 5 MG/ML VIAL IV ONE (13:38)
[2016-07-23] MEDS ORDERED: METOCLOPRAMIDE HCL 5 MG/ML VIAL ONE (13:52)
--- OUTSIDE RECORDS SUMMARY | 2016-07-23 15:50 | XMS REPORT | Continuity of Care Document ---
:1955 Author Organization [facility] ([facility]) Address [address] [place] [address] Phone [phone] Care Team Providers Name Role Phone MariamdaltonalishaMindy Primary Care Provider [phone] Source Comments This disclosure is being made pursuant to the Care Everywhere program, applicable federal and state laws, and may not contain all informaitonavailable regarding this patient.[facility] ([facility]) Active Allergies and Adverse Reactions No [...] Taken Blood Pressure 128/70 03/22/2015 9:14 AM BRAN MIXER Pulse 82 03/22/2015 9:14 AM BRAN MIXER Temperature - - Respiratory Rate - - Height 1.473 m (4' 9.99") 03/22/2015 9:14 AM BRAN MIXER Weight 115.214 kg (254 lb) 03/22/2015 9:14 AM BRAN MIXER Body Mass Index 53.1 03/22/2015 9:14 AM BRAN MIXER Oxygen Saturation - - Plan of Care [...]
[2016-07-23] MEDS ORDERED: METOCLOPRAMIDE HCL 5 MG/ML VIAL IV PRN (15:57)
--- NOTE | 2016-07-23 16:54 | HP ---
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 She was just recently discharged here on 07/18/2016 because of nausea vomiting and abdominal pain. She was diagnosed with liver and pulmonary metastases based on her CT scan. In the emergency room today a CT angiogram was done because of an elevated d-dimer and the patient showed no evidence of pulmonary embolism. Her EKG showed sinus tachycardia with no acute changes.Her troponin was normal. Her x-ray of her abdomen showed dilated loops due to ileus with hepatomegaly. Chest x-ray showed no acute cardiopulmonary findings. She was then admitted for observation and is going to be transferred to the custodial in the morning. We will have physical therapy evaluate her as well. - Patient's Past Medical History Patient History - Medical: Anxiety, Diabetes Type 2, Depression, GERD Patient History - Cardiac/Respiratory: Atrial Fibrillation, Coronary Heart Disease, CHF, COPD, Hypertension, Hyperlipidemia, Home O2 Use, Sleep Apnea Patient History - Cancer: Lung, Other Patient History - Surgical Procedures: Cardiac stent, , Hysterectomy, Hernia Repair Patient History - Other: None - Family History Mother Family History - Medical: Diabetes Type 2 Family History - Cardiac/Respiratory: History Unknown Father Family History - Cardiac/Respiratory: Hypertension Sister Family History - Medical: Diabetes Type 2 - Social History Living Situations: home Abuse History: No History of abuse Psych History: Psychiatric Hx, Hx of Anxiety, Hx of Depression Alcohol Use: none Drug Use: none - Immunizations Immunizations Up to Date: Yes Hx Pneumococcal Vaccination: Yes History of Influenza Vaccine: Yes Review Of Systems (GEN) - Review of Systems Generalized/Overall Review: Present: Weakness. Absent: Chills, Fever EENTM: Present: No Symptoms Reported Cardiac: Present: Chest Pain. Absent: Edema, Palpitations Abdominal: Present: Abdominal Pain. Absent: Nausea, Vomiting Genitourinary: Absent: Urgency, Frequency Musculoskeletal: Present: Joint Pain Immunizations: IMMUNIZATION HX Immunizations Up to Date Yes History of Influenza Vaccine Yes Hx Pneumococcal Vaccination Yes Allergies/Adverse Reactions: Allergies Allergy/AdvReac Type Severity Reaction Status Date / Time sodium salicylate Allergy Unknown Verified 07/23/16 18:19 Home Medications: HOME MEDICATIONS Clopidogrel Bisulfate [Plavix] 75 mg PO DAILY 03/06/14 [Last Taken 05/30/15 09: 30] glipiZIDE [Glipizide] 10 mg PO BID 06/30/14 [Last Taken 05/30/15 09:30] Sertraline HCl [Zoloft] 50 mg PO DAILY 05/30/15 [Last Taken 05/29/15 21:00] ALPRAZolam [Xanax] 0.25 mg PO HS 10/14/15 [Last Taken Unknown] Arformoterol Tartrate [Brovana] 15 mcg IH BID 10/14/15 [Last Taken Unknown] Budesonide [Pulmicort Respules] 2 ml IH BID 10/14/15 [Last Taken Unknown] Tiotropium [place] [Spiriva] 18 mcg IH DAILY 10/14/15 [Last Taken Unknown] predniSONE [Prednisone] 2 mg PO DAILY 07/17/16 [Last Taken Unknown] Diltiazem HCl [Diltiazem 24Hr Cd] 180 mg PO HS #30 cap.er.24h 07/18/16 [Last Taken Unknown] Famotidine [Pepcid AC] 1 tab PO BIDAC #90 tablet 07/18/16 [Last Taken Unknown] Fluconazole [Diflucan] 150 mg PO MOTH #10 tablet 07/18/16 [Last Taken Unknown] Ondansetron [Zofran Odt] 4 mg SL AC #100 tab.rapdis 07/18/16 [Last Taken Unknown ] Spironolactone [Aldactone] 25 mg PO BID #60 tablet 07/18/16 [Last Taken Unknown] metFORMIN HCL [Glucophage] 1,000 mg PO BID #.1 tablet 07/18/16 [Last Taken Unknown] HYDROcodone/ACETAMINOPHEN [[place] 5-325] 1 each PO Q6H PRN #20 tablet 07/20/16 [ Last Taken Unknown] Cyclobenzaprine HCl 10 mg PO TID PRN 07/23/16 [Last Taken Unknown] Diltiazem HCl [Cardizem] 60 mg PO BID 07/23/16 [Last Taken Unknown] Furosemide [Lasix] 80 mg PO BID 07/23/16 [Last Taken Unknown] Lisinopril [Zestril] 10 mg PO DAILY 07/23/16 [Last Taken Unknown] Naproxen [Naprosyn] 500 mg PO BID PRN 07/23/16 [Last Taken Unknown] Simvastatin 10 mg PO HS 07/23/16 [Last Taken Unknown] Exam - Exam Vital Signs: Vital Signs - Last Taken Temp 36.3 C L 07/23/16 12:18 Pulse 95 07/23/16 15:17 Resp 20 07/23/16 15:17 BP 148/73 07/23/16 15:17 Pulse Ox 91 07/23/16 15:17 Diagnostic Studies: Laboratory Results WBC 13.3 K/mm3 (4.0-10.5) H 07/23/16 10:27 RBC 3.92 M/mm3 (4.2-5.4) L 07/23/16 10:27 Hgb 9.6 gm/dL (12.5-16.0) L 07/23/16 10:27 Hct 32.7 % (37.0-47.0) L 07/23/16 10:27 MCV 83.4 fl (78-100) 07/23/16 10:27 MCH 24.5 pg (27-31) L 07/23/16 10:27 MCHC 29.4 g/dl (32-36) L 07/23/16 10:27 RDW 17.6 % (11.5-14.0) H 07/23/16 10:27 Plt Count 508 K/mm3 (150-450) H 07/23/16 10:27 MPV 10.1 fl (6.0-9.5) H 07/23/16 10:27 Neutrophils % (Manual) 85 % (42-75) H 07/23/16 10:27 Band Neuts % (Manual) 4 % (0-2.0) H 07/23/16 10:27 Lymphocytes % (Manual) 8 % (20-51) L 07/23/16 10:27 Monocytes % (Manual) 2 % (0-9) 07/23/16 10:27 Eosinophils % (Manual) 1 % (0-3) 07/23/16 10:27 Neutrophils # (Manual) 11.3 K/mm3 (1.3-6.0) H 07/23/16 10:27 Lymphocytes # (Manual) 1.1 k/mm3 (1.5-3.5) L 07/23/16 10:27 Monocytes # (Manual) 0.3 k/mm3 (0.0-1.0) 07/23/16 10:27 Eosinophils # (Manual) 0.1 k/mm3 (0.0-0.7) 07/23/16 10:27 Toxic Vacuolation Trace 07/23/16 10:27 Dohle Bodies Trace 07/23/16 10:27 Platelet Estimate Increased (NORMAL) H 07/23/16 10:27 PT 11.3 Seconds (9.4-11.4) 07/23/16 10:27 INR (Anticoag Therapy) 1.09 INR (0.90-1.10) 07/23/16 10:27 PTT ([place]) 27.5 Seconds (24-32) 07/23/16 10:27 D-Dimer 6.05 mg/L (0.19-0.49) H 07/23/16 10:27 Sodium 141 mmol/L (132-142) 07/23/16 10:27 Plasma Sodium 142 mmol/L (130-142) 07/23/16 10:27 Potassium 3.5 mmol/L (3.4-4.6) 07/23/16 10:27 Chloride 96 mmol/L (97-106) L 07/23/16 10:27 Carbon Dioxide 38.1 mmol/L (24-32.6) H 07/23/16 10:27 Anion Gap 10.4 mmol/L (6.8-13.8) 07/23/16 10:27 BUN 13 mg/dL (3-23) 07/23/16 10:27 Creatinine 0.65 mg/dL (0.4-1.4) 07/23/16 10:27 Est GFR (Non-Af Amer) 99 mL/min (60-130) D 07/23/16 10:27 BUN/Creatinine Ratio 20.0 (9.0-21.6) 07/23/16 10:27 Random Glucose 172 mg/dL (70-110) H D 07/23/16 10:27 Mean Blood Glucose 134 mg/dL 07/23/16 10:59 Hemoglobin A1c 6.6 % (4.00-6.0) H 07/23/16 10:59 Calcium 9.1 mg/dL (7.9-10.9) 07/23/16 10:27 Calcium Adj for Albumin 10.4 mg/dL (8.4-10.2) H 07/23/16 10:27 Total Bilirubin 0.8 mg/dL (0.0-1.1) 07/23/16 10:27 AST 102 U/L (0-48) H 07/23/16 10:27 ALT 140 U/L (19-67) H 07/23/16 10:27 Alkaline Phosphatase 349 U/L (50-170) H 07/23/16 10:27 Troponin I Less than 0.017 ng/ml (0.00-0.10) 07/23/16 10:27 Total Protein 6.7 gm/dL (6.2-8.2) 07/23/16 10:27 Albumin 2.0 gm/dl (3.4-5.0) L 07/23/16 10:27 Assessment/Plan - Assessment/Plan (1) Pain Assessment: chest and abdominal likely due to progression of her carcinoma. will continue with IV/PO pain meds . Problem: Acute (2) Weakness Assessment: will get PT eval Problem: Acute (3) Physical deconditioning Assessment: will get PT eval Problem: Acute (4) Large cell neuroendocrine carcinoma Problem: Chronic (5) pulmonary and liver lesions, multiple Assessment: Hospice care discussed with patient. she will talk it over with her daughters. Problem: Acute (6) Chronic obstructive lung disease Problem: Acute (7) Fe deficiency anemia Problem: Acute Qualifiers: Iron deficiency anemia type: unspecified iron deficiency Qualified Code(s) : D50.9 - Iron deficiency anemia, unspecified (8) Diabetes mellitus Problem: Chronic (9) Hyperlipidemia Problem: Chronic Qualifiers: Hyperlipidemia type: mixed hyperlipidemia Qualified Code(s): E78.2 - Mixed hyperlipidemia (10) Hypertension Problem: Chronic Qualifiers: Hypertension type: essential hypertension Qualified Code(s): I10 - Essential (primary) hypertension
[2016-07-23] MEDS ORDERED: MORPHINE SULFATE 2 MG/ML DISP.SYRIN IV PRN (17:04)
[2016-07-23] MEDS ORDERED: HYDROcodone/ACETAMINOPHEN 1 EACH TABLET PO PRN (17:06)
[2016-07-23] MEDS ORDERED: FERUMOXYTOL 30 MG/ML VIAL IV SCH (17:15)
[2016-07-23] MEDS ORDERED: ALBUTEROL SULFATE 2.5 MG/3 ML VIAL.NEB IH PRN (17:25)
[2016-07-23] MEDS: NORMAL SALINE 1,000 ML IV PRN (18:21)
[2016-07-23] MEDS: BUDESONIDE 0.5 MG/2 ML VIAL.NEB IH SCH (19:28)
[2016-07-23] MEDS: FORMOTEROL FUMARATE 20 MCG/2 ML VIAL IH SCH (19:28)
[2016-07-23] MEDS: oxyCODONE HCL/ACETAMINOPHEN 1 TAB TABLET PO PRN (20:13)
[2016-07-23] MEDS: DILTIAZEM HCL 180 MG CAP.SR.24H PO SCH (20:14)
[2016-07-23] MEDS: MICONAZOLE NITRATE 85 APPL BTL TP SCH (20:15)
[2016-07-23] MEDS: ALPRAZolam 0.25 MG TABLET PO SCH (20:16)
[2016-07-24] MEDS: oxyCODONE HCL/ACETAMINOPHEN 1 TAB TABLET PO PRN ×3 (04:33→18:44)
[2016-07-24] MEDS: BUDESONIDE 0.5 MG/2 ML VIAL.NEB IH SCH ×2 (06:23→18:16)
[2016-07-24] MEDS: FORMOTEROL FUMARATE 20 MCG/2 ML VIAL IH SCH ×2 (06:23→18:16)
[2016-07-24] MEDS: FAMOTIDINE 20 MG TABLET PO SCH ×2 (07:04→17:10)
[2016-07-24] MEDS: ASPIRIN 81 MG TAB.CHEW PO SCH (08:29)
[2016-07-24] MEDS ORDERED: BISACODYL 10 MG SUPP.RECT RC ONE (08:33)
[2016-07-24] MEDS ORDERED: BISACODYL 5 MG TABLET.DR PO ONE (08:33)
--- NOTE | 2016-07-24 08:35 | PN ---
Progess Note - Interim Narrative: 07/24/16 08:34 Will give dulcolax PO /CT . If with BM , possible transfer to [place] today.
[2016-07-24] MEDS: SERTRALINE HCL 50 MG TABLET PO SCH (08:55)
[2016-07-24] MEDS: CHOLECALCIFEROL 5,000 UNIT TABLET PO SCH (08:57)
[2016-07-24] MEDS: TIOTROPIUM BROMIDE 5 CAP INHALER IH SCH (08:58)
[2016-07-24] MEDS: CLOPIDOGREL BISULFATE 75 MG TABLET PO SCH (08:58)
[2016-07-24] MEDS: MICONAZOLE NITRATE 85 APPL BTL TP SCH ×2 (09:34→20:54)
[2016-07-24] MEDS ORDERED: SODIUM, POTASSIUM,MAG SULFATES 1 KIT KIT PO ONE (14:30)
--- NOTE | 2016-07-24 16:24 | PN ---
Subjective - Date and Time Seen Date: 07/24/16 Time: 16:19 Subjective Narrative: Pain is better controlled. No BM. Objective - Review of Systems Generalized/Overall Review: Reports: Weakness. Denies: Chills, Fever EENTM: Reports: No Symptoms Reported Respiratory: Denies: Cough, Shortness of Breath Cardiac: Reports: Chest Pain, Edema. Denies: Palpitations Abdominal: Reports: Nausea, Abdominal Pain. Denies: Vomiting Genitourinary Symptoms: Denies: Urgency, Frequency Musculoskeletal Complaints: Reports: Joint Pain - Vitals Vitals: Last Vital Signs Temp 36.5 C 07/24/16 14:00 Pulse 101 H 07/24/16 14:00 Resp 20 07/24/16 14:00 BP 131/78 07/24/16 14:00 Pulse Ox 93 07/24/16 14:00 - Exam Constitutional: Present: Alert, Oriented x3, Cooperative ENT Exam: Present: hearing grossly normal Neck: Present: supple Breasts: Present: Exam deferred Respiratory: Present: decreased breath sounds, No rales, No wheezing Cardiovascular/Chest: Present: regular rate, rhythm, no JVD, no murmur Abdomen: Present: Normal bowel sounds, tender, firm, hypoactive Extremity: Present: no calf tenderness, pedal edema Assessment/Plan - Problems/Diagnosis (1) Partial small bowel obstruction Problem: Acute Narrative: vs ileus. Positive stool retention. no BM but has passage of gas. Will do Dulcolax PO/NE. if no success, will try suprep. (2) Pain Problem: Acute (3) Weakness Problem: Acute Narrative: PT eval and treat (4) Physical deconditioning Problem: Acute Narrative: PT eval and treat. (5) Large cell neuroendocrine carcinoma Problem: Chronic Narrative: awaiting NH placement and hospice referral (6) pulmonary and liver lesions, multiple Problem: Acute (7) Chronic obstructive lung disease Problem: Acute (8) Fe deficiency anemia Problem: Acute Qualifiers: Iron deficiency anemia type: unspecified iron deficiency Qualified Code(s) : D50.9 - Iron deficiency anemia, unspecified (9) Diabetes mellitus Problem: Chronic (10) Hyperlipidemia Problem: Chronic Qualifiers: Hyperlipidemia type: mixed hyperlipidemia Qualified Code(s): E78.2 - Mixed hyperlipidemia (11) Hypertension Problem: Chronic Qualifiers: Hypertension type: essential hypertension Qualified Code(s): I10 - Essential (primary) hypertension
[2016-07-24] MEDS ORDERED: ENOXAPARIN SODIUM 40 MG/0.4 ML SYRG SC SCH (16:30)
[2016-07-24] MEDS: NORMAL SALINE 1,000 ML IV PRN (18:45)
[2016-07-24] MEDS: ALPRAZolam 0.25 MG TABLET PO SCH (20:51)
[2016-07-24] MEDS: DILTIAZEM HCL 180 MG CAP.SR.24H PO SCH (20:52)
[2016-07-25] MEDS: oxyCODONE HCL/ACETAMINOPHEN 1 TAB TABLET PO PRN ×3 (00:54→11:16)
[2016-07-25] MEDS: FORMOTEROL FUMARATE 20 MCG/2 ML VIAL IH SCH (05:59)
[2016-07-25] MEDS: BUDESONIDE 0.5 MG/2 ML VIAL.NEB IH SCH (06:00)
[2016-07-25] MEDS: FAMOTIDINE 20 MG TABLET PO SCH (06:43)
[2016-07-25 07:51] VITALS: BP 136/99
--- NOTE | 2016-07-25 07:54 | PN ---
Progess Note - Interim Narrative: 07/25/16 07:52 Had 5 BM's last night. Last one 5:30 a.m. still waiting NH placement. will advance diet to full liquids.
[2016-07-25] MEDS ORDERED: SENNOSIDES/DOCUSATE SODIUM 1 TAB TABLET PO PRN (08:21)
[2016-07-25] MEDS: ASPIRIN 81 MG TAB.CHEW PO SCH (08:44)
[2016-07-25] MEDS: CHOLECALCIFEROL 5,000 UNIT TABLET PO SCH (08:44)
[2016-07-25] MEDS: CLOPIDOGREL BISULFATE 75 MG TABLET PO SCH (08:44)
[2016-07-25] MEDS: SERTRALINE HCL 50 MG TABLET PO SCH (08:44)
[2016-07-25] MEDS: TIOTROPIUM BROMIDE 5 CAP INHALER IH SCH (08:45)
[2016-07-25] MEDS: MICONAZOLE NITRATE 85 APPL BTL TP SCH (08:47)
--- NOTE | 2016-07-25 09:23 | DS ---
(1) Partial small bowel obstruction Diagnosis(s): had 5 BM's. follow up xrfay shows ileus than mechanical obstruction. will keep her on full liquids for now. Problem: Acute (2) Pain Diagnosis(s): due to progression of carcinoma. Problem: Acute (3) Weakness Diagnosis(s): deconditioning/cancer Problem: Acute (4) Physical deconditioning Problem: Acute (5) Large cell neuroendocrine carcinoma Problem: Chronic (6) pulmonary and liver lesions, multiple Problem: Acute (7) Chronic obstructive lung disease Problem: Acute (8) Fe deficiency anemia Problem: Acute Qualifiers: Iron deficiency anemia type: unspecified iron deficiency Qualified Code(s) : D50.9 - Iron deficiency anemia, unspecified (9) Diabetes mellitus Problem: Chronic (10) Hyperlipidemia Problem: Chronic Qualifiers: Hyperlipidemia type: mixed hyperlipidemia Qualified Code(s): E78.2 - Mixed hyperlipidemia (11) Hypertension Problem: Chronic Qualifiers: Hypertension type: essential hypertension Qualified Code(s): I10 - Essential (primary) hypertension Description of Stay: Sophie Madrid, is a 60-year-old white female, with previous medical history of 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 She was just recently discharged here on 07/18/2016 because of nausea vomiting and abdominal pain. She was diagnosed with liver and pulmonary metastases based on her CT scan. In the emergency room today a CT angiogram was done because of an elevated d-dimer and the patient showed no evidence of pulmonary embolism. Her EKG showed sinus tachycardia with no acute changes.Her troponin was normal. Her x-ray of her abdomen showed dilated loops due to ileus versus partial small bowel obstruction with hepatomegaly. She received an enema in the ER which did not make her go. Chest x-ray showed no acute cardiopulmonary findings. She was then admitted for observation and was given Dulcolax oral and suppository with out success. Suprep was given and she has had 5 bowel movements since then. She will be discharged tot he [place] for PT/OT and Hospice referral. Procedures Performed: none Discharge Disposition: [facility] Disposition: [facility] Condition: Poor Discharge Activity: Activity as tolerated Discharge Diet: Full Liquids Additional Patient Instructions (free text): Follow up appointment with Dr. Reinoso @ [facility] is on 07-27-16 @ 9:00am. Please fax DC summary to there office on discharge fax # [phone] . office phone # is [phone]. Will follow up with patient in the NH. Prescriptions (Any new or edited meds): Aspirin [Aspirin Chewable] 81 mg PO DAILY #30 tab.chew HYDROcodone/ACETAMINOPHEN [[place] 5-325] 1 each PO Q4H PRN #20 tablet PRN Reason: Pain Miconazole Nitrate [Desenex] 1 appl TP BID #1 btl Sennosides/Docusate Sodium [Senokot-S] 1 tab PO BID PRN #60 tablet PRN Reason: Constipation metFORMIN HCL [Glucophage] 1,000 mg PO BIDWM #180 tablet Complete Home Medications List: Complete Home Medication List: Clopidogrel Bisulfate [Plavix] 75 mg PO DAILY 03/06/14 Sertraline HCl [Zoloft] 50 mg PO DAILY 05/30/15 ALPRAZolam [Xanax] 0.25 mg PO HS 10/14/15 Arformoterol Tartrate [Brovana] 15 mcg IH BID 10/14/15 Budesonide [Pulmicort Respules] 2 ml IH BID 10/14/15 Tiotropium [place] [Spiriva] 18 mcg IH DAILY 10/14/15 Diltiazem HCl [Diltiazem 24Hr Cd] 180 mg PO HS #30 cap.er.24h 07/18/16 Famotidine [Pepcid AC] 1 tab PO BIDAC #90 tablet 07/18/16 Ondansetron [Zofran Odt] 4 mg SL AC #100 tab.rapdis 07/18/16 Spironolactone [Aldactone] 25 mg PO BID #60 tablet 07/18/16 Furosemide [Lasix] 80 mg PO BID 07/23/16 Lisinopril [Zestril] 10 mg PO DAILY 07/23/16 Simvastatin 10 mg PO HS 07/23/16 Aspirin [Aspirin Chewable] 81 mg PO DAILY #30 tab.chew 07/25/16 HYDROcodone/ACETAMINOPHEN [[place] 5-325] 1 each PO Q4H PRN #20 tablet 07/25/16 Miconazole Nitrate [Desenex] 1 appl TP BID #1 btl 07/25/16 Sennosides/Docusate Sodium [Senokot-S] 1 tab PO BID PRN #60 tablet 07/25/16 metFORMIN HCL [Glucophage] 1,000 mg PO BIDWM #180 tablet 07/25/16
[2016-07-25 09:55] LABS: Anion Gap 8.5 mmol/L (6.8-13.8); BUN/Creatinine Ratio 10.1 (9.0-21.6); Carbon Dioxide 37.7 mmol/L (24-32.6); Estimated Creat Clear 61.5; Potassium 3.2 mmol/L (3.4-4.6)
[2016-07-25] MEDS ORDERED: POTASSIUM CHLORIDE 10 MEQ TABLET.SA PO ONE (11:11)
[2016-07-30] MEDS ORDERED: FERUMOXYTOL 510 MG in NORMAL SALINE 100 ML IV SCH (09:00)
== END 2016-07-25 11:45 ==
LOC: ER 10:11 → MS 15:45
PROVIDERS: ADMIT Internal Medicine; ATTEND Internal Medicine
DX: K56.60 Unspecified intestinal obstruction (principal); G89.3 Neoplasm related pain (acute) (chronic); C7A.8 Other malignant neuroendocrine tumors; R53.1 Weakness; C78.00 Secondary malignant neoplasm of unspecified lung; C78.7 Secondary malignant neoplasm of liver and intrahepatic bile duct; D50.9 Iron deficiency anemia, unspecified; E11.9 Type 2 diabetes mellitus without complications; E78.5 Hyperlipidemia, unspecified; I10 Essential (primary) hypertension; E66.01 Morbid (severe) obesity due to excess calories; I25.10 Atherosclerotic heart disease of native coronary artery without angina pectoris; G47.33 Obstructive sleep apnea (adult) (pediatric); J44.9 Chronic obstructive pulmonary disease, unspecified
CPT/HCPCS: 36415; 71275; 74020; 80048; 80053; 83036; 84484; 85025; 85379; 85610; 85730; 93005; 94640; 96372; 96374; 96375; 96376; 97116; 97161; 99283; G0378; G8978; G8979